=== PATIENT | female | born 1960 | race Caucasian/White ===

== ENCOUNTER 2020-01-15 08:22 | Outpatient (CLI) | payer BC, SELFPAY ==
--- NOTE | 2020-01-15 08:32 | MM_ITS ---
WS: [id number] BILATERAL DIGITAL SCREENING MAMMOGRAPHY WITH CAD CLINICAL INFORMATION: SCREENING HISTORY: Screening mammogram. Left breast soreness COMPARISON: July 30, 2018 TECHNIQUE: Bilateral CC and MLO views. FINDINGS: Scattered fibroglandular densities bilaterally. No suspicious focal mass, asymmetry, calcifications, or architectural distortion. No evidence of malignancy. Stable clustered punctate calcifications left breast. MM/[place] [id number] IMPRESSION: BI-RADS: 2-Benign FOLLOW UP: 1 Year Follow-up Recommend return to annual screening mammography.
== END 2020-01-15 08:23 | disposition home or self-care (01) ==
LOC: RADSHAW 08:31
PROVIDERS: PCP Family Medicine; Visit Provider Family Medicine
DX: Z12.31 Encounter for screening mammogram for malignant neoplasm of breast (principal)
CPT/HCPCS: 77067

== ENCOUNTER 2020-11-16 08:37 | Outpatient (CLI) | payer BC, SELFPAY ==
--- NOTE | 2020-11-16 08:44 | US_ITS ---
WS: [id number] Complete ABDOMINAL ULTRASOUND HISTORY: EPIGASTRIC ABDOMINAL PAIN COMPARISON: None available. Liver: 12.8 cm in length. Liver is normal size and echogenicity with no mass or intrahepatic dilatati on. Gallbladder: Normally distended with no gallstones, wall thickening or pericholecystic fluid. Gallbladder wall thickness: 0.2 cm. Pancreas: Normal size and echogenicity. CBD: 0.5 cm. Right kidney: 9.7 cm x 4.6 cm x 3.9 cm. No mass, cortical thickening or hydronephrosis. Left kidney: 10.6 cm x 3.9 cm x 4.3 cm. No mass, cortical thickening or hydronephrosis. Spleen: Normal size and echogenicity. Abdominal aorta and IVC are within normal limits. No ascites. US/US abdomen complete* [id number] IMPRESSION: Normal complete abdomen ultrasound.
== END 2020-11-16 08:38 | disposition home or self-care (01) ==
LOC: US 08:43
PROVIDERS: PCP Family Medicine; Visit Provider Family Medicine
DX: R10.13 Epigastric pain (principal)
CPT/HCPCS: 76700

== ENCOUNTER 2021-02-19 08:20 | Outpatient (CLI) | payer BC, SELFPAY ==
--- NOTE | 2021-02-19 08:26 | MM_ITS ---
WS: [id number] Bilateral screening digital mammogram, 02/19/2021 Clinical Data: SCREENING Comparison: 01/15/2020, 07/30/2018, 07/20/2017, 07/13/2016, 06/23/2015, 06/09/2014, 06/06/2013, 2, 05/03/2011, 04/20/2010, 04/17/2009, 04/11/2008, 04/04/2008, 12/14/2006. Findings: The breast parenchymal pattern shows fibroglandular tissue. No spiculated masses or clustered calcifi cations are seen. There are no secondary signs of carcinoma. Mole markers are on both breasts. MM/[place] [id number] Impression: 1. Negative bilateral mammogram unchanged. 2. Recommend annual screening mammograms. BIRADS: 1-Negative FOLLOW UP: 1 Year Follow-up The CAD loom stop checker was used.
== END 2021-02-19 08:21 | disposition home or self-care (01) ==
LOC: RADSHAW 08:25
PROVIDERS: PCP Family Medicine; Visit Provider Family Medicine
DX: Z12.31 Encounter for screening mammogram for malignant neoplasm of breast (principal)
CPT/HCPCS: 77067

== ENCOUNTER → 2022-01-14 08:28 | Outpatient (BNVA) | payer BC, SELFPAY | PROVIDERS: PCP Family Medicine; Visit Provider Clinical Nurse Specialist Adult Health | DX: R10.9 Unspecified abdominal pain (principal) | CPT/HCPCS: 81000; 87077; 87086; 87184 ==

== ENCOUNTER 2022-03-02 08:09 | Outpatient (CLI) | payer BC, SELFPAY ==
--- NOTE | 2022-03-02 08:14 | MM_ITS ---
WS: [id number] Exam: [place] [id number] Date/Time of Exam: 03/02/2022 8:18 AM Reason For Exam: SCREENING VIEWS: MLO and CC views both breasts. 3D digital tomosynthesis is also included in this exam. Comparison made with prior exam of 06/23/2015, 07/13/2016, 07/30/2018, 01/15/2020 and 02/19/2021. Findings: There was no sign of mass, architectural distortion or suspicious calcification in either breast. Sta ble appearing small nodular densities in both breasts. Scattered fibroglandular densities MM/[place] [id number] Impression: BI-RADS: 2-Benign FOLLOW-UP: 1 Year Follow-up This mammogram was also analyzed by the Computer Aided Detection System R2 Imag e Senior Etl Developer.
== END 2022-03-02 08:10 | disposition home or self-care (01) ==
LOC: RAD 08:10
PROVIDERS: PCP Family Medicine; Visit Provider Family Medicine
DX: Z12.31 Encounter for screening mammogram for malignant neoplasm of breast (principal)
CPT/HCPCS: 77063; 77067

== ENCOUNTER → 2022-05-09 08:12 | Outpatient (BNVA) | payer BC, SELFPAY | PROVIDERS: PCP Family Medicine; Visit Provider Family Medicine | DX: Z00.00 Encounter for general adult medical examination without abnormal findings (principal); E03.9 Hypothyroidism, unspecified | CPT/HCPCS: 84443 ==

== ENCOUNTER 2023-05-03 08:48 | Outpatient (CLI) | payer BC, SELFPAY ==
--- NOTE | 2023-05-03 09:02 | MM_ITS ---
WS: [id number] BILATERAL SCREENING DIGITAL TOMOSYNTHESIS MAMMOGRAM WITH CAD HISTORY: SCREENING COMPARISON: 03/02/2022 and 02/19/2021 Bilateral CC and MLO views with tomosynthesis and synthetic mammography submitted. Computer aided det ection analyzed. Breast composition: There are scattered areas of fibroglandular density. No suspicious masses, microc alcifications or architectural distortion. Benign calcifications LEFT breast. IMPRESSION: MM/[place] [id number] BI-RADS: 2-Benign FOLLOW UP: 1 Year Follow-up
== END 2023-05-03 08:49 | disposition home or self-care (01) ==
PROVIDERS: PCP Physician Assistant; Visit Provider Physician Assistant
DX: Z12.31 Encounter for screening mammogram for malignant neoplasm of breast (principal)
CPT/HCPCS: 77063; 77067

== ENCOUNTER 2024-05-02 10:42 | Outpatient (CLI) | payer BC, SELFPAY ==
--- NOTE | 2024-05-02 10:46 | CT_ITS ---
WS: [id number] CT ABDOMEN AND PELVIS NONCONTRAST HISTORY: LOWER ABDOMINAL PAIN TECHNIQUE: Imaging performed through the abdomen and pelvis. Coronal and sagittal reformats are submi tted. All CT scans at [facility] use at least one of these dose optimization techniques: auto mated exposure control; mA and/or kV adjustment per patient size (includes targeted exams where dose is matched to clinical indication); or iterative reconstruction. DLP: 657.01 mGy.cm COMPARISON: None available. Lower thorax: Lung bases are clear. Visualized heart is normal. No hiatal hernia. Liver: Liver is slightly enlarged. There are 2 low-attenuation masses within the LEFT lobe of the carmelo er. The largest is 1.6 cm. Favor hepatic cyst. No bile duct dilatation. Gallbladder: Normal gallbladder. No pericholecystic fluid or cholelithiasis. No gallbladder wall thic kening. Pancreas: Normal size and attenuation. Normal pancreatic duct. No pancreatitis or mass. Spleen: Normal. Adrenal glands: Normal. No mass. Right kidney: Normal size kidney with no mass or hydronephrosis. Left kidney: Normal size kidney with no mass or hydronephrosis. Aorta: Mild atherosclerosis abdominal aorta with no aneurysm. Bilateral renal veins appear prominent. There is also mild prominence and nodularity along the ovaria n vein complex greater on the RIGHT than the LEFT. There are several phleboliths along the ovarian ve ins. No free fluid, intraperitoneal air or significant lymphadenopathy. GI tract: Prior appendectomy. No obstruction. Moderate diffuse constipation. Abdominal wall: Small umbilical hernia contains fat only. Pelvis: Urinary bladder is well distended. There is no free fluid in the pelvis. Prior hysterectomy. Osseous structures: Mild degenerative scoliosis, convex to the LEFT. CT/CT abdomen pelvis wo con [id number] IMPRESSION: 1. No renal stone or obstruction. 2. Prior appendectomy. 3. Mildly prominent and nodular ovarian vein complexes, RIGHT greater than LEF T. The renal veins also are prominent. Ultrasound evaluation of the renal veins should be considered to exclude thrombus. There are no secondary findings to s uggest there is renal vein thrombosis. The nodularity of the gonadal veins is p robably chronic and may be related to pelvic venous congestion syndrome. 4. No renal mass or urinary bladder mass is identified on this unenhanced exam to explain hematuria.
[2024-05-02] MEDS: iohexol 350 mg/mL 500 mL Btl (per mL) PO (12:40)
== END 2024-05-02 10:43 | disposition home or self-care (01) ==
LOC: RAD 10:42
PROVIDERS: PCP Physician Assistant; Visit Provider Family Medicine
DX: R93.429 Abnormal radiologic findings on diagnostic imaging of unspecified kidney (principal); Z90.49 Acquired absence of other specified parts of digestive tract; Z90.710 Acquired absence of both cervix and uterus; R10.30 Lower abdominal pain, unspecified
CPT/HCPCS: 74176

== ENCOUNTER 2025-02-11 07:12 | Outpatient (CLI) | payer MEDICARE, SELFPAY ==
--- NOTE | 2025-02-11 07:21 | CTR_ITS ---
PROCEDURE INFORMATION: Exam: CT Neck With Contrast Exam date and time: 02/11/2025 7:57 AM Age: 64 years old Clinical indication: Mass, lump, or swelling in neck; Left; Prior surgery; Surgery date: 6+ months; Surgery type: Thyroid; Swollen lymph nodes since 2017, site not specified; Additional info: Localized swelling, mass, lump, neck TECHNIQUE: Imaging protocol: Computed tomography of the neck with contrast. Radiation optimization: All CT scans at this facility use at least one of these dose optimization techniques: automated exposure control; mA and/or kV adjustment per patient size (includes targeted exams where dose is matched to clinical indication); or iterative reconstruction. Contrast material: OMNI 350; Contrast volume: 100 ml; Contrast route: INTRAVENOUS (IV); COMPARISON: CT neck w con* [id number] 04/02/2019 9:42 AM RADIATION DOSE METRICS: Total DLP (mGy-cm): 204.66 FINDINGS: Salivary glands: Normal. Glands are normal in size. Pharynx: Unremarkable. No significant tonsillar enlargement. Larynx: Unremarkable. Epiglottis is normal. Thyroid: Normal. No enlarged or calcified nodules. Trachea: Visualized trachea is unremarkable. Lungs: Unremarkable as visualized. Lymph nodes: Visible cervical lymph nodes are symmetrical and not pathologically enlarged. Bones/joints: Unremarkable. No acute fracture. Soft tissues: Unremarkable. No significant soft tissue swelling. CT/CT neck w con* [id number] IMPRESSION: No acute findings.
[2025-02-11] MEDS: iohexol 350 mg/mL 500 mL Btl (per mL) IV (08:15)
== END 2025-02-11 07:13 | disposition home or self-care (01) ==
LOC: RAD 07:12
PROVIDERS: PCP Physician Assistant; Visit Provider Physician Assistant
DX: R22.1 Localized swelling, mass and lump, neck (principal)
CPT/HCPCS: 70491

== ENCOUNTER 2025-05-09 10:05 | Outpatient (CLI) | payer MEDICARE, SELFPAY ==
--- NOTE | 2025-05-09 10:13 | MM_ITS ---
WS: [id number] BILATERAL SCREENING DIGITAL TOMOSYNTHESIS MAMMOGRAM WITH CAD HISTORY: SCREENING COMPARISON: 05/03/2023, 03/02/2022 Bilateral CC and MLO views with tomosynthesis and synthetic mammography submitted. Computer aided detection analyzed. Breast composition: There are scattered areas of fibroglandular density. No suspicious masses, microcalcifications or architectural distortion. Benign cluster of calcifications central LEFT breast is stable. MM/MM scr BI tomosynthesis [id number] IMPRESSION: BI-RADS: 2 - Benign. FOLLOW UP: 1 Year Follow-up
== END 2025-05-09 10:06 | disposition home or self-care (01) ==
LOC: RAD 10:08
PROVIDERS: PCP Physician Assistant; Visit Provider Physician Assistant
DX: Z12.31 Encounter for screening mammogram for malignant neoplasm of breast (principal); R92.323 Mammographic fibroglandular density, bilateral breasts; R92.1 Mammographic calcification found on diagnostic imaging of breast
CPT/HCPCS: 77063; 77067